=== PATIENT | female | born 1985 | race Caucasian/White ===

== ENCOUNTER → 2018-09-10 | Emergency (ER) | payer MEDICAID ==
[~2018-09-10] VITALS: Wt 65.7 kg
[~2018-09-10] MED LIST: BEN25 PO; DIPHENHYDRAMINE 50 MG CAP PO ONE; METHYLPREDNISOLONE 125 MG INJ IM ONE; PRED20TA PO
[2018-09-10 19:42] VITALS: BP 148/93; PULSE 88; RESP 18
--- NOTE | 2018-09-10 21:44 | ERD ---
ER Documentation Chief Complaint Chief Complaint BODYWIDE RASH X'S 2 DAYS, ITCHY EYES HPI 33-year-old female, previously healthy, presents to the emergency department complaining of 2 days with worsening of erythematous, pruritic rash. The patient denies history of allergies, no fever, no chills, no abdominal pain, no upper respiratory symptoms. ROS All systems reviewed and are negative except as per history of present illness. Medications Home Meds Active Scripts Diphenhydramine Hcl* (Benadryl*) 25 Mg Cap, 25 MG PO Q6 PRN for ITCHING/RASH, #30 TAB Prov:SANAZ RODRIGUEZ MD 09/10/18 Prednisone* (Prednisone*) 20 Mg Tab, 40 MG PO DAILY for 4 Days, TAB Prov:SANAZ RODRIGUEZ MD 09/10/18 Allergies Allergies: Coded Allergies: No Known Drug Allergy (Verified Allergy, Unknown, 12/27/06) PMhx/Soc Medical and Surgical Hx: pt denies Medical Hx, pt denies Surgical Hx Hx Alcohol Use: No Hx Substance Use: No Hx Tobacco Use: No Smoking Status: Never smoker Physical Exam Vitals Vital Signs Date Temp Pulse Resp B/P (MAP) Pulse Ox O2 O2 Flow FiO2 Time Delivery Rate 09/10/18 98.6 88 18 148/93 99 19:42 (111) Physical Exam Const: No acute distress Head: Atraumatic Eyes: Normal Conjunctiva ENT: Normal External Ears, Nose and Mouth. Neck: Full range of motion. No meningismus. Resp: Clear to auscultation bilaterally Cardio: Regular rate and rhythm, no murmurs Abd: Soft, non tender, non distended. Normal bowel sounds Skin: Urticarial rash predominantly in upper extremities; no petechiae or rashes Back: No midline or flank tenderness Ext: No cyanosis, or edema Neur: Awake and alert Psych: Normal Mood and Affect Results 24 hrs Current Medications Medications Dose Sig/Praful Start Time Status Last (Trade) Ordered Route PRN Stop Time Admin Dose Reason Admin 125 mg ONCE ONCE 09/10/18 DC 09/10/18 Methylprednis IM 22:00 21:50 olone Sodium 09/10/18 22:01 Succinate (Solu-Medrol) 50 mg ONCE ONCE 09/10/18 DC 09/10/18 Diphenhydrami PO 22:00 21:50 ne HCl 09/10/18 22:01 (Benadryl) Procedures/MDM Differential diagnosis include but not limited to: Viral exanthema, acute allergic reaction, autoimmune dermatitis, medication side effect, low suspicion for angioedema, anaphylactic shock, Hyman-Donovan syndrome. Physical examination and clinical presentation consistent most likely with acute allergic urticaria During the ED course the patient remained hemodynamically stable stable, no new complaints. Results and clinical impression discussed with the patient who agrees with management. The patient is stable to be treated outpatient and will be discharged home with a Rx for prednisone and Benadryl, some side effects of prescribed medications (headache, rash, nausea, vomiting, diarrhea, drowsiness, interactions with other medications) were reviewed. The patient was instructed to follow up with the primary care provider in the next 48h. If symptoms persist, worsen or new symptoms develop, then patient should return to the ED immediately. Instructions explained and given directly by me with acknowledgment and demonstrated understanding. Disclaimer: Inadvertent spelling and grammatical errors are likely due to EHR/dictation software use and do not reflect on the overall quality of patient care. Also, please note that the electronic time recorded on this note does not necessarily reflect the actual time of the patient encounter. Departure Diagnosis: Primary Impression: Allergic urticaria Condition: Stable Additional Instructions: Muchas deanna por [facility] para siddiqi servicio. Esperamos que en siddiqi visita a la tenzin de emergencia siddiqi problema medico haya sido solucionado y que se sienta mucho mejor. Para estar seguros que siddiqi mejoria sigue en proceso, le pedimos el favor de hacer efren schuyler de seguimiento medico con siddiqi doctor primario en los proximos 2-4 vega. Lleve con usted estos documentos y las medicinas recetadas. Si anoop sintomas empeoran, NO SE ESPERE, por favor regrese a tenzin de emergencia INMEDIATAMENTE. En jaimie que usted no tenga un mdico de atencin primaria: Llame al mdico o clnica comunitaria de referencia que aparece abajo shasha las horas de consultorio para hacer efren schuyler para que le vean. CLINICAS: [facility] [phone] [facility] [phone] [facility] [phone] [place] [phone] [place] [phone] [facility] [phone] SANAZ YBARRA MD Sep 10, 2018 21:44
== END | disposition home or self-care (01) ==
LOC: FTE 19:10
DX: L50.0 Allergic urticaria (principal)
CPT/HCPCS: 96372; J2930; Z7502; Z7610